=== PATIENT | female | born 1960 ===

== ENCOUNTER → 2016-05-08 | Outpatient (CLI) | payer OTHER ==
--- NOTE | 2016-05-08 12:55 | DX ---
Right and Left Tibiae/Fibulae Clinical History: 55-year-old female with bilateral tibiofibular pain for 2 months. ICD-10 Diagnostic Code: M79.604. Comparison Study: Dictated report of a right ankle series dated August 23, 2008 (images have been purg ed). Findings: RIGHT TIBIA-FIBULA (AP and Lateral Views, at 12:13 p.m.): Bone mineralization is preserved. There is no fracture, dislocation, lytic or blastic lesion, or periostitis. The ankle mortise is maintained, and there is no ankle joint effusion. Impression: Negative. LEFT TIBIA FIBULA (AP and Lateral Views, at 12:12 p.m.): Bone mineralization is preserved. There is no fracture, dislocation, periostitis, or lytic or blastic lesion. There is some degenerative pinnacl ing of the tibial spines and some mild osseous hypertrophy along the intercondylar femoral notch. The ankle mortise is maintained. There is no ankle joint effusion. Impression: No acute abnormality. If there is further clinical concern regarding the patient's ongoing pain, MR imaging or bone scan co uld be considered to exclude taveras splints.
== END ==
LOC: BRMIMAGING 11:41
PROVIDERS: ATTEND Physician Assistant Medical
DX: M79.604 Pain in right leg (principal); M79.605 Pain in left leg
CPT/HCPCS: 73590-PO